=== PATIENT | female | born 2000 ===

== ENCOUNTER 2025-05-29 08:38 | Emergency (ER) | payer SELFPAY ==
[~2025-05-29] VITALS: Ht 167.6 cm; Wt 80.0 kg
[2025-05-29 08:41] VITALS: PULSE 100; RESP 18; O2SAT 98
[2025-05-29 08:47] VITALS: BP 114/72; TEMP 36.9; O2SAT 97
== END 2025-05-29 11:00 | disposition home or self-care (01) ==
LOC: ER 08:38
DX: K62.89 Other specified diseases of anus and rectum (principal)
CPT/HCPCS: 99281